=== PATIENT | female | born 1995 | race Two or more races ===

== ENCOUNTER → 2021-09-06 | Outpatient (CLI) | payer OTHER ==
--- NOTE | 2021-09-16 17:37 | KCIC ---
Bilateral digital screening mammograms with 3-D tomosynthesis: Reason for examination: Routine screening. No previous examinations available for comparison. Bilateral mammograms in CC and oblique projections were obtained with 2-D imaging and 3-D tomosynthes is imaging on a Siemens Inspiration unit and reviewed on the workstation. Interpretation was made wit h the benefit of CAD. The skin and nipples show no abnormalities. No abnormal axillary lymph nodes are seen. The breast par enchyma is heterogeneously dense. (Breast density: Category C.) There is a 6.5 mm nodule at the 10:00 B position of the right breast 6.5 cm from the nipple which may represent a small intramammary lymph node. There also appear to be 2 small nodules in the lower inner quadrant of the left breast at appr oximately the 8:00 B position 7.5 cm from the nipple measuring approximately 11 mm in greatest dimens ion and 4.5 cm from the nipple measuring approximately 7 mm in greatest dimension. Further evaluation with ultrasound is recommended. There are no other dominant masses, suspicious calcifications or arc hitectural distortion. Impression: 6.5 mm nodule at the 10:00 B position of the right breast 6.5 cm from the nipple. 11 mm nodule at 8:00 B position of the left breast 7.5 cm from the nipple. 7 mm nodule at the 8:00 B position of the left breast 4.5 cm from the nipple. Recommend further evaluation with bilateral breast ultrasound. Your patient's mammogram demonstrates that she has dense breast tissue (breast density category C or D), which could hide abnormalities, and if she has other risk factors for breast cancer that have bee n identified, she might benefit from supplemental screening tests that may be suggested by you as her ordering physician. Dense breast tissue, in and of itself, is a relatively common condition. Therefo re, this information is not provided to cause undue concern, but rather to raise your awareness and t o promote discussion with your patient regarding the presence of other risk factors, in addition to d ense breast tissue. Your patient's mammography results will be sent to her. BI-RAD Category 0: Incomplete. Needs additional imaging evaluation. "Our facility is accredited by the [employer] Mammography [employer]." This patient's information has been entered into a reminder system for the patient to be notified wit h the results of her examination and a target date for the next mammogram. Electronically signed by: Chula Azar MD (09/16/2021 5:35 PM) [id number]
== END ==
LOC: KCIC MAMMO 08:22
PROVIDERS: ATTEND Obstetrics & Gynecology
DX: Z12.31 Encounter for screening mammogram for malignant neoplasm of breast (principal)
CPT/HCPCS: 77063; 77067

== ENCOUNTER → 2021-09-27 | Outpatient (CLI) | payer OTHER ==
--- NOTE | 2021-09-27 14:17 | KCIC ---
Bilateral breast ultrasound: Reason for examination: Nodular densities on screening mammogram. Comparison is made to mammographic exam dated 09/06/2021. Ultrasound examination of the breasts and axilla was performed bilaterally. In the right breast, there is a 8.8 mm hypoechoic fibrocystic type lesion in parallel orientation whi ch has a fibrocystic/fibroadenomatous appearance. There is some ductal ectasia in the retroareolar po sition. No abnormal appearing lymph nodes are seen in the right axilla. In the left breast, there are 2 small fibrocystic type lesions at the 8:00 position 3 cm from the nip ple measuring 5.5 mm and greatest dimension and at the 8:00 position 4.5 cm from the nipple measuring 7.3 mm in greatest dimension. No suspicious-appearing nodules are seen. There is some ductal ectasia in the retroareolar position. No abnormal appearing lymph nodes are seen in the left axilla. IMPRESSION: 8.8 mm nodule in the right breast at the 10:00 position has a fibrocystic/fibroadenomatous appearance . 2 small fibrocystic lesions in the left breast at the 8:00 position measuring 7.3 and 5.5 mm in great est dimensions. Recommend 6 month follow-up with bilateral breast ultrasound. BI-RADS Category 3: Probably Benign. "Our facility is accredited by the [employer] Mammography Program." This patient's information has been entered into a reminder system for the patient to be notified wit h the results of her examination and a target date for the next mammogram. Electronically signed by: Chula Azar MD (09/27/2021 2:15 PM) [facility]
== END ==
LOC: KCIC US 12:48
PROVIDERS: ATTEND Obstetrics & Gynecology
DX: N63.11 Unspecified lump in the right breast, upper outer quadrant (principal); N64.89 Other specified disorders of breast
CPT/HCPCS: 76641